=== PATIENT | male | born 1950 | race Caucasian/White ===

== ENCOUNTER 2017-09-30 13:34 | Inpatient (IN) ==
[2017-09-30] MEDS ORDERED: ALBUTEROL/IPRATROPIUM 3 ML NEB RESP TX STA (15:52)
[2017-09-30] MEDS ORDERED: methylPREDNISolone SOD SUC 125 MG/2 ML VIAL ONE (15:57)
[2017-09-30] MEDS ORDERED: methylPREDNISolone SOD SUC 125 MG/2 ML VIAL IV STA (16:13)
[2017-09-30 16:22] LABS: Immature Granulocytes % 0.5 %; Immature Granulocytes Absolute 0.04 #; Lymphocytes % 33.9 % (21.2-54.2); Mean Corpuscular HGB Conc 36.9 GM/DL (32-36)
[2017-09-30 16:28] LABS: PT Patient Result 10.4 SECS; Partial Thromboplastin Time 31.8 SECS (0-40)
[2017-09-30 16:36] LABS: Basophils % 0.4 % (0.0-0.8); Eosinophils # 0.1 10*3/uL (0.0-0.87); Eosinophils % 1.6 % (0.00-10.9); Hematocrit 40.7 VOL% (42.0-52.0); Lymphocytes # 2.5 10*3/uL (1.4-4.0); Mean Corpuscular Hemoglobin 33 PG (27-34); Mean Corpuscular Volume 89.6 FL (87-102); Mean Platelet Volume 11.9 FL (9.6-12.0); Monocytes # 0.4 10*3/uL (0.11-0.8); Monocytes % 5.7 % (1.7-12.7); Neutrophils # 4.3 10*3/uL (1.4-7.4); Neutrophils % 57.9 % (38.7-73.9); Platelet Count 182 T/CUMM (130-400); Red Blood Count 4.54 MC/CUMM (3.8-5.5); Red Cell Distribution Width 13.6 % (9.3-17.3); White Blood Count 7.5 T/CUMM (4-12)
[2017-09-30] MEDS ORDERED: cefTRIAXone 1,000 MG in SODIUM CHLORIDE 0.9% 100 ML IV STA (16:40)
[2017-09-30 16:44] LABS: Alanine Aminotransferase 25 U/L (16-61); Albumin 3.5 G/DL (3.4-5.0); Alkaline Phosphatase 75 U/L (45-117); Aspartate Amino Transferase 19 U/L (0-37); Blood Urea Nitrogen 11 MG/DL (7-18); Calcium 8.8 MG/DL (8.5-10.1); Glucose 87 MG/DL (74-106); Magnesium 1.9 MG/DL (1.8-2.4); Osmolality,Calculated 280.1 MOS/KG (273-304); Potassium 4.9 MMOL/L (3.5-5.1); Sodium 142 MMOL/L (136-145); Total Protein 6.6 G/DL (6.4-8.3); Troponin I Only < 0.015 NG/ML (0.00-0.045)
[2017-09-30] MEDS ORDERED: ALBUTEROL 2.5 MG/3 ML NEB RESP TX SCH (17:00)
[2017-09-30] MEDS ORDERED: cefTRIAXone 1,000 MG VIAL ONE (19:53)
[2017-09-30] MEDS: SODIUM CHLORIDE 0.9% 1,000 ML IV SCH (20:15)
[2017-09-30] MEDS ORDERED: ONDANSETRON 4 MG/2 ML VIAL IV PRN (20:32)
[2017-09-30] MEDS ORDERED: ZALEPLON 5 MG CAPSULE PO PRN (20:32)
[2017-09-30] MEDS ORDERED: ALBUTEROL 2.5 MG/3 ML NEB RESP TX PRN (20:32)
[2017-09-30] MEDS ORDERED: ACETAMINOPHEN 325 MG TABLET PO PRN (20:32)
[2017-09-30] MEDS: ALBUTEROL/IPRATROPIUM 3 ML NEB RESP TX SCH (20:55)
[2017-09-30] MEDS: BUDESONIDE/FORMOTEROL 160-4.5 INHALER 6 GM INH SCH (21:17)
[2017-09-30] MEDS: LEVOFLOXACIN INJ 750 MG in PREMIX 1 EACH IV SCH (21:18)
[2017-09-30] MEDS: ENOXAPARIN 40 MG/0.4 ML SYRINGE SUBCUT SCH (21:20)
[2017-10-01] MEDS: ALBUTEROL/IPRATROPIUM 3 ML NEB RESP TX SCH ×4 (00:24→19:20)
[2017-10-01] MEDS: methylPREDNISolone SOD SUC 40 MG/1 ML VIAL IV SCH ×4 (02:46→20:07)
[2017-10-01] MEDS: PANTOPRAZOLE 40 MG TABLET PO SCH (08:36)
[2017-10-01] MEDS: ASPIRIN EC 81 MG TABLET PO SCH (08:36)
[2017-10-01] MEDS: BUDESONIDE/FORMOTEROL 160-4.5 INHALER 6 GM INH SCH ×2 (08:36→20:11)
[2017-10-01] MEDS: SODIUM CHLORIDE 0.9% 1,000 ML IV SCH (11:03)
[2017-10-01] MEDS: NICOTINE 21 MG/24 HR PATCH TRANSDERM SCH (12:19)
[2017-10-01] MEDS: ENOXAPARIN 40 MG/0.4 ML SYRINGE SUBCUT SCH (20:07)
[2017-10-01] MEDS: LEVOFLOXACIN INJ 750 MG in PREMIX 1 EACH IV SCH (20:10)
[2017-10-02] MEDS: ALBUTEROL/IPRATROPIUM 3 ML NEB RESP TX SCH ×4 (00:25→19:10)
[2017-10-02] MEDS: methylPREDNISolone SOD SUC 40 MG/1 ML VIAL IV SCH ×4 (01:08→20:21)
[2017-10-02] MEDS: SODIUM CHLORIDE 0.9% 1,000 ML IV SCH (01:09)
[2017-10-02] MEDS: ASPIRIN EC 81 MG TABLET PO SCH (08:55)
[2017-10-02] MEDS: NICOTINE 21 MG/24 HR PATCH TRANSDERM SCH (08:55)
[2017-10-02] MEDS: BUDESONIDE/FORMOTEROL 160-4.5 INHALER 6 GM INH SCH ×2 (08:55→20:23)
[2017-10-02] MEDS: PANTOPRAZOLE 40 MG TABLET PO SCH (08:55)
[2017-10-02] MEDS: LEVOFLOXACIN INJ 750 MG in PREMIX 1 EACH IV SCH (20:24)
[2017-10-02] MEDS: ENOXAPARIN 40 MG/0.4 ML SYRINGE SUBCUT SCH (20:29)
[2017-10-03] MEDS: ALBUTEROL/IPRATROPIUM 3 ML NEB RESP TX SCH ×4 (00:10→19:50)
[2017-10-03] MEDS: methylPREDNISolone SOD SUC 40 MG/1 ML VIAL IV SCH ×4 (02:07→23:19)
[2017-10-03] MEDS: BUDESONIDE/FORMOTEROL 160-4.5 INHALER 6 GM INH SCH ×2 (08:41→23:20)
[2017-10-03] MEDS: ASPIRIN EC 81 MG TABLET PO SCH (08:41)
[2017-10-03] MEDS: PANTOPRAZOLE 40 MG TABLET PO SCH (08:41)
[2017-10-03] MEDS: NICOTINE 21 MG/24 HR PATCH TRANSDERM SCH (08:41)
[2017-10-03] MEDS: ENOXAPARIN 40 MG/0.4 ML SYRINGE SUBCUT SCH (23:19)
[2017-10-03] MEDS: LEVOFLOXACIN INJ 750 MG in PREMIX 1 EACH IV SCH (23:20)
[2017-10-04] MEDS: ALBUTEROL/IPRATROPIUM 3 ML NEB RESP TX SCH ×2 (00:26→07:16)
[2017-10-04] MEDS: methylPREDNISolone SOD SUC 40 MG/1 ML VIAL IV SCH ×2 (02:23→10:03)
[2017-10-04] MEDS: ASPIRIN EC 81 MG TABLET PO SCH (10:03)
[2017-10-04] MEDS: PANTOPRAZOLE 40 MG TABLET PO SCH (10:04)
[2017-10-04] MEDS: NICOTINE 21 MG/24 HR PATCH TRANSDERM SCH (10:04)
[2017-10-04] MEDS: BUDESONIDE/FORMOTEROL 160-4.5 INHALER 6 GM INH SCH (10:04)
[2017-10-04 12:40] VITALS: BP 116/70
== END 2017-10-04 13:40 | disposition home or self-care (01) | DRG 192 ==
LOC: N.ED 13:34 → N.EDINP 17:51 → N.5E 19:07
PROVIDERS: ADMIT Internal Medicine; ATTEND Internal Medicine

== ENCOUNTER 2021-05-18 21:09 | Inpatient (IN) ==
[2021-05-18] MEDS ORDERED: SODIUM CHLORIDE 0.9% 500 ML IV STA (21:39)
[2021-05-18] MEDS ORDERED: HYDROmorphone 2 MG/1 ML VIAL IV STA (21:39)
[2021-05-18] MEDS ORDERED: methylPREDNISolone SOD SUC 125 MG/2 ML VIAL IV STA (21:39)
[2021-05-18] MEDS ORDERED: ONDANSETRON 4 MG/2 ML VIAL IV STA (21:39)
[2021-05-18] MEDS ORDERED: ALBUTEROL/IPRATROPIUM 3 ML NEB RESP TX STA (21:39)
[2021-05-18 22:26] LABS: Hemoglobin 13.9 GM/DL (14.0-18.0); Mean Corpuscular HGB Conc 35.6 GM/DL (32-36); Mean Corpuscular Volume 92.6 FL (87-102); Red Blood Count 4.21 MC/CUMM (3.8-5.5); White Blood Count 11.4 T/CUMM (4-12)
[2021-05-18 22:27] LABS: Basophils % 0.3 % (0.0-0.8); Eosinophils # 0.1 10*3/uL (0.0-0.87); Eosinophils % 1.1 % (0.00-10.9); Immature Granulocytes % 0.7 %; Immature Granulocytes Absolute 0.08 #; Lymphocytes # 2.6 10*3/uL (1.4-4.0); Lymphocytes % 23.1 % (21.2-54.2); Mean Platelet Volume 11.2 FL (9.6-12.0); Monocytes % 4.5 % (1.7-12.7); Neutrophils % 70.3 % (38.7-73.9); Platelet Count 140 T/CUMM (130-400)
[2021-05-18 22:42] LABS: INR 0.9; PT Patient Result 10.3 SECS (10.5-12.0)
[2021-05-18 22:50] LABS: Bilirubin,Urine Negative (Negative); Blood, Urine Negative (Negative); Glucose,Urine (UA) Negative (Negative); Ketones,Urine Negative (Negative); Nitrite,Urine Negative (Negative); Protein,Urine Negative; RBC,Urine 1 /HPF (0-4); Squamous Epithelial Cell,Urine Occasional /HPF (0-10); Urine Appearance CLEAR (Clear); Urine Color Yellow (Yellow); Urine Specific Gravity 1.006 (1.001-1.035); Urine Urobilinogen < 2.0 EU/DL (0.2-1.0)
[2021-05-18 22:52] LABS: Alanine Aminotransferase 21 U/L (16-61); Albumin 3.5 G/DL (3.4-5.0); Alkaline Phosphatase 76 U/L (45-117); Aspartate Amino Transferase 18 U/L (0-37); Blood Urea Nitrogen 15 MG/DL (7-18); Calcium 8.5 MG/DL (8.5-10.1); Carbon Dioxide 27 MMOL/L (21-32); Estimated Glom Filtration Rate 66 ML/MIN; Glucose 127 MG/DL (74-106); Osmolality,Calculated 281.4 MOS/KG (273-304); Potassium 4.8 MMOL/L (3.5-5.1); Sodium 140 MMOL/L (136-145); Total Protein 6.6 G/DL (6.4-8.2)
[2021-05-18] MEDS ORDERED: BISACODYL 5 MG TABLET PO PRN (22:57)
[2021-05-18] MEDS ORDERED: PROMETHAZINE 25 MG/1 ML VIAL IM PRN (22:57)
[2021-05-18] MEDS ORDERED: ONDANSETRON 4 MG/2 ML VIAL IV PRN (22:57)
[2021-05-18] MEDS ORDERED: NICOTINE 21 MG/24 HR PATCH TRANSDERM PRN (22:57)
[2021-05-18] MEDS ORDERED: DEXTROSE 50% 25 GM/50 ML VIAL IV PRN (22:57)
[2021-05-18] MEDS ORDERED: hydrALAZINE 20 MG/1 ML VIAL IV PRN (22:57)
[2021-05-18] MEDS ORDERED: GLUCAGON 1 MG VIAL IM PRN (22:57)
[2021-05-18] MEDS ORDERED: DEXTROSE 5% NACL 0.9% 1,000 ML IV SCH (23:00)
[2021-05-18] MEDS ORDERED: HYDROmorphone 2 MG/1 ML VIAL IV PRN (23:01)
[2021-05-19 01:46] LABS: ABG Base Excess 0.5 MMOL/L (-2.5-2.5); ABG HCO3 26.3 MMOL/L (20-26); ABG Oxygen Saturation 95.9 % (95-100); ABG PCO2 46.8 MM HG (35-48); ABG PH 7.368 (7.35-7.45); ABG TCO2 27.8 MMOL/L (23-27)
[2021-05-19 05:34] LABS: Basophils % 0.1 % (0.0-0.8); Hematocrit 38.8 VOL% (42.0-52.0); Hemoglobin 13.5 GM/DL (14.0-18.0); Immature Granulocytes % 0.8 %; Immature Granulocytes Absolute 0.06 #; Lymphocytes # 0.7 10*3/uL (1.4-4.0); Lymphocytes % 9.6 % (21.2-54.2); Mean Corpuscular HGB Conc 34.8 GM/DL (32-36); Mean Corpuscular Volume 94.2 FL (87-102); Mean Platelet Volume 11.8 FL (9.6-12.0); Monocytes % 2.1 % (1.7-12.7); Neutrophils % 87.4 % (38.7-73.9); Platelet Count 125 T/CUMM (130-400); Red Blood Count 4.12 MC/CUMM (3.8-5.5); Red Cell Distribution Width 14.1 % (9.3-17.3); White Blood Count 7.5 T/CUMM (4-12)
[2021-05-19 05:44] LABS: Calcium 8.2 MG/DL (8.5-10.1); Osmolality,Calculated 284.5 MOS/KG (273-304); Potassium 4.8 MMOL/L (3.5-5.1)
[2021-05-19] MEDS: ALBUTEROL/IPRATROPIUM 3 ML NEB RESP TX SCH ×4 (07:19→19:09)
[2021-05-19] MEDS: MONTELUKAST 10 MG TABLET PO SCH (08:34)
[2021-05-19] MEDS: BUDESONIDE/FORMOTEROL 160-4.5 INHALER 6 GM INH SCH ×2 (08:34→20:15)
[2021-05-19] MEDS ORDERED: PANTOPRAZOLE 40 MG TABLET PO SCH (09:00)
[2021-05-19] MEDS: PANTOPRAZOLE 40 MG VIAL IV SCH (09:12)
[2021-05-19] MEDS ORDERED: ROPIVACAINE 0.5% 30 ML VIAL ONE (09:14)
[2021-05-19] MEDS ORDERED: LIDOCAINE 1% 5 ML VIAL ONE (09:14)
[2021-05-19] MEDS ORDERED: DEXAMETHASONE 4 MG/1 ML VIAL ONE (09:14)
[2021-05-19] MEDS ORDERED: BACITRACIN OINT 0.9 GM PACK TOP ONE (09:20)
[2021-05-19] MEDS ORDERED: ALBUTEROL/IPRATROPIUM 3 ML NEB RESP TX ONE (09:35)
[2021-05-19] MEDS ORDERED: BUPIVACAINE SPINAL 0.75% 2 ML AMP SPINAL ONE (09:55)
[2021-05-19] MEDS ORDERED: DEXMEDETOMIDINE 200 MCG/2 ML VIAL ONE (09:55)
[2021-05-19] MEDS ORDERED: MIDAZOLAM 2 MG/2 ML VIAL ONE (10:23)
[2021-05-19] MEDS ORDERED: methylPREDNISolone SOD SUC 125 MG/2 ML VIAL ONE (10:39)
[2021-05-19] MEDS ORDERED: TRANEXAMIC ACID 1,000 MG/10 ML VIAL ONE (10:56)
[2021-05-19] MEDS ORDERED: SODIUM CHLORIDE 0.9% 100 ML IV ONE ×2 (10:56→22:29)
[2021-05-19] MEDS ORDERED: SODIUM CHLORIDE 0.9% 1,000 ML IV ONE (10:56)
[2021-05-19] MEDS ORDERED: MAGNESIUM HYDROXIDE SUSP 30 ML UDCUP PO PRN (11:16)
[2021-05-19] MEDS: LACTATED RINGERS 1,000 ML IV SCH ×2 (13:33→23:06)
[2021-05-19] MEDS: KETOROLAC 15 MG/1 ML VIAL IV SCH ×3 (13:33→23:05)
[2021-05-19] MEDS: DOCUSATE SODIUM 100 MG CAPSULE PO SCH (20:15)
[2021-05-20] MEDS: ALBUTEROL/IPRATROPIUM 3 ML NEB RESP TX SCH ×4 (00:29→19:08)
[2021-05-20] MEDS: FONDAPARINUX 2.5 MG/0.5 ML SYRINGE SUBCUT SCH (05:34)
[2021-05-20] MEDS: KETOROLAC 15 MG/1 ML VIAL IV SCH (05:34)
[2021-05-20 06:14] LABS: Basophils % 0.1 % (0.0-0.8); Hematocrit 30.6 VOL% (42.0-52.0); Immature Granulocytes % 0.7 %; Immature Granulocytes Absolute 0.07 #; Lymphocytes # 1.6 10*3/uL (1.4-4.0); Lymphocytes % 16.3 % (21.2-54.2); Mean Corpuscular HGB Conc 36.3 GM/DL (32-36); Mean Corpuscular Volume 93.3 FL (87-102); Mean Platelet Volume 11.3 FL (9.6-12.0); Monocytes % 7.8 % (1.7-12.7); Neutrophils % 75.1 % (38.7-73.9); Red Cell Distribution Width 14.1 % (9.3-17.3); White Blood Count 9.7 T/CUMM (4-12)
[2021-05-20 06:24] LABS: Hemoglobin 11.1 GM/DL (14.0-18.0); Platelet Count 87 T/CUMM (130-400); Red Blood Count 3.28 MC/CUMM (3.8-5.5)
[2021-05-20 06:28] LABS: Osmolality,Calculated 276.7 MOS/KG (273-304); Potassium 4.8 MMOL/L (3.5-5.1)
[2021-05-20 06:40] LABS: Anisocytosis 1+; Platelet Estimate Decreased
[2021-05-20 06:41] LABS: Macrocytosis Slight
[2021-05-20] MEDS: BUDESONIDE/FORMOTEROL 160-4.5 INHALER 6 GM INH SCH ×2 (09:05→21:19)
[2021-05-20] MEDS: MONTELUKAST 10 MG TABLET PO SCH (09:05)
[2021-05-20] MEDS: DOCUSATE SODIUM 100 MG CAPSULE PO SCH ×2 (09:05→21:18)
[2021-05-20] MEDS: PANTOPRAZOLE 40 MG VIAL IV SCH (09:06)
[2021-05-20] MEDS ORDERED: ALBUTEROL/IPRATROPIUM 3 ML NEB RESP TX PRN (10:17)
[2021-05-20] MEDS ORDERED: IPRATROPIUM/ALBUTEROL INHALER INH SCH (13:00)
[2021-05-20] MEDS: BECLOMETHASONE 80 MCG/PUFF INHALER 8.7 GM INH SCH (21:18)
[2021-05-21] MEDS: ALBUTEROL/IPRATROPIUM 3 ML NEB RESP TX SCH ×4 (01:12→19:27)
[2021-05-21] MEDS: FONDAPARINUX 2.5 MG/0.5 ML SYRINGE SUBCUT SCH (05:33)
[2021-05-21 06:10] LABS: Basophils % 0.2 % (0.0-0.8); Eosinophils % 0.5 % (0.00-10.9); Hematocrit 31.2 VOL% (42.0-52.0); Hemoglobin 11.2 GM/DL (14.0-18.0); Immature Granulocytes % 0.7 %; Immature Granulocytes Absolute 0.06 #; Lymphocytes # 1.7 10*3/uL (1.4-4.0); Lymphocytes % 21.1 % (21.2-54.2); Mean Corpuscular HGB Conc 35.9 GM/DL (32-36); Mean Corpuscular Volume 92.3 FL (87-102); Mean Platelet Volume 12.3 FL (9.6-12.0); Monocytes % 8.2 % (1.7-12.7); Neutrophils % 69.3 % (38.7-73.9); Platelet Count 102 T/CUMM (130-400); Red Blood Count 3.38 MC/CUMM (3.8-5.5); Red Cell Distribution Width 14.2 % (9.3-17.3); White Blood Count 8.3 T/CUMM (4-12)
[2021-05-21 06:24] LABS: Calcium 8.2 MG/DL (8.5-10.1); Osmolality,Calculated 284.1 MOS/KG (273-304); Potassium 4.9 MMOL/L (3.5-5.1)
[2021-05-21 06:29] LABS: Hypochromasia Slight; Microcytosis Slight; Platelet Estimate Decreased
[2021-05-21] MEDS: PANTOPRAZOLE 40 MG VIAL IV SCH (09:01)
[2021-05-21] MEDS: BECLOMETHASONE 80 MCG/PUFF INHALER 8.7 GM INH SCH ×2 (09:01→20:52)
[2021-05-21] MEDS: MONTELUKAST 10 MG TABLET PO SCH (09:01)
[2021-05-21] MEDS: DOCUSATE SODIUM 100 MG CAPSULE PO SCH ×2 (09:01→20:51)
[2021-05-21] MEDS: BUDESONIDE/FORMOTEROL 160-4.5 INHALER 6 GM INH SCH ×2 (09:01→20:52)
[2021-05-21] MEDS: POLYETHYLENE GLYCOL POWDER 17 GM PACK PO SCH ×4 (10:57→22:25)
[2021-05-21] MEDS: LACTULOSE 20 GM/30 ML UDCUP PO SCH ×2 (10:57→20:52)
[2021-05-21] MEDS: LUBIPROSTONE 24 MCG CAPSULE PO SCH ×2 (11:37→22:25)
[2021-05-22] MEDS: POLYETHYLENE GLYCOL POWDER 17 GM PACK PO SCH ×3 (02:42→10:03)
[2021-05-22] MEDS: FONDAPARINUX 2.5 MG/0.5 ML SYRINGE SUBCUT SCH (06:12)
[2021-05-22 06:28] LABS: Basophils % 0.2 % (0.0-0.8); Eosinophils # 0.1 10*3/uL (0.0-0.87); Eosinophils % 0.4 % (0.00-10.9); Hematocrit 34.1 VOL% (42.0-52.0); Hemoglobin 12.5 GM/DL (14.0-18.0); Immature Granulocytes Absolute 0.13 #; Lymphocytes # 2.2 10*3/uL (1.4-4.0); Lymphocytes % 16.5 % (21.2-54.2); Mean Corpuscular HGB Conc 36.7 GM/DL (32-36); Mean Corpuscular Volume 91.4 FL (87-102); Mean Platelet Volume 11.8 FL (9.6-12.0); Monocytes % 8.3 % (1.7-12.7); Neutrophils % 73.6 % (38.7-73.9); Platelet Count 122 T/CUMM (130-400); Red Blood Count 3.73 MC/CUMM (3.8-5.5); Red Cell Distribution Width 13.8 % (9.3-17.3)
[2021-05-22 06:33] LABS: White Blood Count 13.5 T/CUMM (4-12)
[2021-05-22] MEDS: ALBUTEROL/IPRATROPIUM 3 ML NEB RESP TX SCH ×3 (06:35→13:50)
[2021-05-22 06:49] LABS: Platelet Estimate Normal
[2021-05-22] MEDS ORDERED: LINACLOTIDE 145 MCG CAPSULE PO SCH (07:30)
[2021-05-22] MEDS: LACTULOSE 20 GM/30 ML UDCUP PO SCH (08:02)
[2021-05-22] MEDS: LUBIPROSTONE 24 MCG CAPSULE PO SCH (08:02)
[2021-05-22] MEDS: DOCUSATE SODIUM 100 MG CAPSULE PO SCH (08:02)
[2021-05-22] MEDS: BUDESONIDE/FORMOTEROL 160-4.5 INHALER 6 GM INH SCH (08:53)
[2021-05-22] MEDS: PANTOPRAZOLE 40 MG VIAL IV SCH (08:53)
[2021-05-22] MEDS: MONTELUKAST 10 MG TABLET PO SCH (08:53)
[2021-05-22] MEDS: BECLOMETHASONE 80 MCG/PUFF INHALER 8.7 GM INH SCH (08:53)
[2021-05-22 10:38] LABS: Bilirubin,Urine Negative (Negative); Blood, Urine Moderate mg/dL (Negative); Glucose,Urine (UA) Negative (Negative); Ketones,Urine Negative (Negative); Mucus,Urine Occasional /LPF (Occasional); Nitrite,Urine Negative (Negative); Protein,Urine Negative; RBC,Urine 6 /HPF (0-4); Urine Appearance CLEAR (Clear); Urine Color Yellow (Yellow); Urine Specific Gravity 1.006 (1.001-1.035)
[2021-05-22 12:06] VITALS: BP 118/95
[2021-05-22] MEDS ORDERED: CEFUROXIME 500 MG TABLET PO SCH (17:00)
== END 2021-05-22 14:25 | DRG 481 ==
LOC: EDUNIT# → EDBD → N.ED 21:09 → N.EDINP 22:57 → SUATTDRO 22:57 → N.3E 05-19 00:02
PROVIDERS: ADMIT Internal Medicine; ATTEND Hospitalist

== ENCOUNTER 2022-12-12 16:22 | Observation (INO) ==
[2022-12-12 16:59] LABS: Eosinophils # 0.1 10*3/uL (0.0-0.87); Eosinophils % 0.4 % (0.00-10.9)
[2022-12-12] MEDS ORDERED: ALBUTEROL/IPRATROPIUM 3 ML NEB RESP TX STA (17:08)
[2022-12-12] MEDS ORDERED: SODIUM CHLORIDE 0.9% 1,000 ML IV STA (17:08)
[2022-12-12] MEDS ORDERED: methylPREDNISolone SOD SUC 125 MG/2 ML VIAL IV STA (17:08)
[2022-12-12 17:19] LABS: Basophils # 0.1 10*3/uL (0.0-0.2); Basophils % 0.4 % (0.0-0.8); Hematocrit 34.5 VOL% (42.0-52.0); Hemoglobin 13.4 GM/DL (14.0-18.0); Immature Granulocytes % 1.7 %; Immature Granulocytes Absolute 0.27 #; Lymphocytes # 1.4 10*3/uL (1.4-4.0); Lymphocytes % 8.7 % (21.2-54.2); Mean Corpuscular HGB Conc 38.8 GM/DL (32-36); Mean Corpuscular Volume 97.2 FL (87-102); Monocytes # 0.9 10*3/uL (0.11-0.8); Monocytes % 5.2 % (1.7-12.7); Neutrophils % 83.6 % (38.7-73.9); Platelet Count 234 T/CUMM (130-400); Red Blood Count 3.55 MC/CUMM (3.8-5.5); Red Cell Distribution Width 19.3 % (9.3-17.3); White Blood Count 16.3 T/CUMM (4-12)
[2022-12-12 17:25] LABS: Albumin 3.6 G/DL (3.4-5.0); Bilirubin,Total 1.1 MG/DL (0.20-1.00); Calcium 9.1 MG/DL (8.5-10.1); Osmolality,Calculated 277.7 MOS/KG (273-304); Potassium 4.8 MMOL/L (3.5-5.1)
[2022-12-12] MEDS ORDERED: PIPERACILLIN/TAZOBACTAM 3,375 MG in SODIUM CHLORIDE 0.9% 100 ML IV STA (18:31)
[2022-12-12] MEDS ORDERED: ALBUTEROL NEB SOLN 5 MG/ML 20 ML/BOTTLE CONT NEB STA (18:37)
[2022-12-12] MEDS ORDERED: ONDANSETRON 4 MG/2 ML VIAL IV PRN (18:54)
[2022-12-12] MEDS ORDERED: ACETAMINOPHEN 325 MG TABLET PO PRN (18:54)
[2022-12-12] MEDS ORDERED: ALBUTEROL 2.5 MG/3 ML NEB RESP TX ONE (19:02)
[2022-12-12] MEDS: ALBUTEROL/IPRATROPIUM 3 ML NEB RESP TX SCH (19:06)
[2022-12-12] MEDS: LACTATED RINGERS 1,000 ML IV SCH (20:25)
[2022-12-12] MEDS: AZITHROMYCIN INJ 500 MG in SODIUM CHLORIDE 0.9% 250 ML IV SCH (23:51)
[2022-12-12] MEDS: ENOXAPARIN 40 MG/0.4 ML SYRINGE SUBCUT SCH (23:53)
[2022-12-12] MEDS: tiZANidine 4 MG TABLET PO SCH (23:53)
[2022-12-13] MEDS: ALBUTEROL/IPRATROPIUM 3 ML NEB RESP TX SCH ×5 (01:30→20:48)
[2022-12-13] MEDS: methylPREDNISolone SOD SUC 40 MG/1 ML VIAL IV SCH ×3 (02:59→20:56)
[2022-12-13] MEDS: FLUTICASONE 220 MCG/PUFF INHALER 12 GM INH SCH ×3 (06:09→20:59)
[2022-12-13 06:17] LABS: Calcium 8.6 MG/DL (8.5-10.1); Osmolality,Calculated 282.7 MOS/KG (273-304); Potassium 4.6 MMOL/L (3.5-5.1)
[2022-12-13 06:39] LABS: Basophils % 0.1 % (0.0-0.8); Hematocrit 32.4 VOL% (42.0-52.0); Hemoglobin 11.6 GM/DL (14.0-18.0); Immature Granulocytes % 1.8 %; Immature Granulocytes Absolute 0.25 #; Lymphocytes # 0.7 10*3/uL (1.4-4.0); Lymphocytes % 5.3 % (21.2-54.2); Mean Corpuscular HGB Conc 35.8 GM/DL (32-36); Mean Corpuscular Volume 93.1 FL (87-102); Mean Platelet Volume 10.8 FL (9.6-12.0); Monocytes # 0.1 10*3/uL (0.11-0.8); Monocytes % 0.4 % (1.7-12.7); Neutrophils % 92.4 % (38.7-73.9); Platelet Count 185 T/CUMM (130-400); Red Blood Count 3.48 MC/CUMM (3.8-5.5); Red Cell Distribution Width 16.5 % (9.3-17.3); White Blood Count 13.7 T/CUMM (4-12)
[2022-12-13 06:57] LABS: Band Neutrophils 1 % (0-10); Lymphocytes 5 % (20-55); Microcytosis Slight; Target Cells Slight; Total Cells Counted 100
[2022-12-13 06:58] LABS: Platelet Estimate Adequate
[2022-12-13] MEDS: MONTELUKAST 10 MG TABLET PO SCH (08:12)
[2022-12-13] MEDS: tiZANidine 4 MG TABLET PO SCH ×3 (08:12→21:01)
[2022-12-13] MEDS: ASPIRIN EC 81 MG TABLET PO SCH (08:12)
[2022-12-13] MEDS: PANTOPRAZOLE 40 MG TABLET PO SCH (08:13)
[2022-12-13] MEDS: LACTATED RINGERS 1,000 ML IV SCH (08:13)
[2022-12-13] MEDS ORDERED: NICOTINE 21 MG/24 HR PATCH TRANSDERM PRN (11:06)
[2022-12-13] MEDS: AZITHROMYCIN INJ 500 MG in SODIUM CHLORIDE 0.9% 250 ML IV SCH (20:59)
[2022-12-13] MEDS: ENOXAPARIN 40 MG/0.4 ML SYRINGE SUBCUT SCH (21:01)
[2022-12-14] MEDS: ALBUTEROL/IPRATROPIUM 3 ML NEB RESP TX SCH ×2 (00:25→07:53)
[2022-12-14] MEDS: LACTATED RINGERS 1,000 ML IV SCH (02:17)
[2022-12-14] MEDS: methylPREDNISolone SOD SUC 40 MG/1 ML VIAL IV SCH (05:18)
[2022-12-14 06:13] LABS: Calcium 9.3 MG/DL (8.5-10.1); Osmolality,Calculated 284.4 MOS/KG (273-304); Potassium 4.8 MMOL/L (3.5-5.1)
[2022-12-14 06:48] LABS: Basophils % 0.1 % (0.0-0.8); Hematocrit 30.2 VOL% (42.0-52.0); Immature Granulocytes % 1.3 %; Immature Granulocytes Absolute 0.13 #; Lymphocytes % 9.6 % (21.2-54.2); Mean Corpuscular HGB Conc 35.1 GM/DL (32-36); Mean Corpuscular Volume 91.5 FL (87-102); Mean Platelet Volume 10.6 FL (9.6-12.0); Monocytes # 0.2 10*3/uL (0.11-0.8); Monocytes % 2.3 % (1.7-12.7); Neutrophils % 86.7 % (38.7-73.9); Platelet Count 172 T/CUMM (130-400); Red Cell Distribution Width 15.5 % (9.3-17.3); White Blood Count 10.3 T/CUMM (4-12)
[2022-12-14 06:54] LABS: Hemoglobin 10.6 GM/DL (14.0-18.0)
[2022-12-14] MEDS: MONTELUKAST 10 MG TABLET PO SCH (08:49)
[2022-12-14] MEDS: FLUTICASONE 220 MCG/PUFF INHALER 12 GM INH SCH (08:49)
[2022-12-14] MEDS: PANTOPRAZOLE 40 MG TABLET PO SCH (08:49)
[2022-12-14] MEDS: ASPIRIN EC 81 MG TABLET PO SCH (08:49)
[2022-12-14] MEDS: tiZANidine 4 MG TABLET PO SCH (08:49)
[2022-12-14 11:38] VITALS: BP 106/60
== END 2022-12-14 13:02 | disposition home or self-care (01) ==
LOC: N.EDINP 16:22 → N.ED 16:22 → N.2W 19:50
PROVIDERS: ADMIT Internal Medicine; ATTEND Internal Medicine